=== PATIENT | male | born 2000 | race American Indian/Alaskan Native ===

== ENCOUNTER 2020-09-08 12:49 | Emergency (ER) | payer SELFPAY ==
[2020-09-08 13:34] LABS: Hemoglobin 14.6 gm/dl (11.8-15.2); Mean Corpuscular HGB Conc 35 % (32-34); Mean Corpuscular Volume 88 fl (84-94); Platelet Count 220 K/mm3 (140-440); Red Cell Distribution Width 13.2 % (13.2-15.2)
[2020-09-08 13:47] LABS: Bilirubin,Urine NEG (Negative); Blood,Urine NEG (Negative); Color,Urine Yellow (Yellow); Mucus,Urine 1+ /HPF; Protein,Urine <15 mg/dL mg/dL (Negative); RBC,Urine < 1.0 /HPF (0.0-6.0); Urobilinogen,Urine < 2.0 mg/dL (<2.0)
[2020-09-08 13:53] LABS: Alanine Aminotransferase 25 units/L (7-56); Albumin 4.4 g/dL (3.9-5); BUN/Creatinine Ratio 14; Blood Urea Nitrogen 11 mg/dL (9-20); Hemolysis Index 22
[2020-09-08] MEDS ORDERED: ONDANSETRON 4 MG ODT TAB PO ONE (14:36)
[2020-09-08] MEDS ORDERED: LOPERAMIDE 2 MG CAP PO ONE (14:37)
[2020-09-08 14:39] VITALS: BP 112/64
[2020-09-08 14:47] LABS: Total Cells Counted 100
--- NOTE | 2020-09-08 14:47 | Emergency Department Report ---
ED N/V/D HPI - General Chief complaint: Abdominal Pain Stated complaint: AB/STOMACH PAIN WITH DIARRHEA PUI?: No Source: patient Mode of arrival: Ambulatory Limitations: No Limitations - History of Present Illness Initial comments: 20-year-old -[place] male with a past medical history of HIV and has been off his medication for 3 months presents to the emergency room complaining of diarrhea and nausea for the last 2 days. Patient states he has intermittent abdominal pain but does not have any pain at this time. Patient states that anything he eats or drinks it runs right through to him. Patient reports his try taking Pepto-Bismol but that seemed to make the diarrhea worse. Patient denies any fever or chills no urinary symptoms no chest pain or shortness of breath. MD complaint: nausea, diarrhea Onset/Timin - Related Data Previous Rx's Medication Instructions Recorded Last Taken Type Bictegrav/Emtricit/Tenofov Ala 1 each PO QDAY #30 tablet 09/08/20 Unknown Rx [Biktarvy 50-200-25 mg (Nf)] Ondansetron [Zofran Odt] 4 mg PO Q8HR PRN #8 tab.rapdis 09/08/20 Unknown Rx Allergies Allergy/AdvReac Type Severity Reaction Status Date / Time No Known Allergies Allergy Unverified 09/08/20 12:57 ED Review of Systems ROS: Stated complaint: AB/STOMACH PAIN WITH DIARRHEA Other details as noted in HPI ED Past Medical Hx - Past Medical History Previous Medical History?: Yes Hx HIV: Yes - Surgical History Past Surgical History?: No - Social History Smoking Status: Current Every Day Smoker Substance Use Type: Alcohol, Marijuana - Medications Home Medications: Home Medications Medication Instructions Recorded Confirmed Last Taken Type Bictegrav/Emtricit/Tenofov Ala 1 each PO QDAY #30 tablet 09/08/20 Unknown Rx [Biktarvy 50-200-25 mg (Nf)] Ondansetron [Zofran Odt] 4 mg PO Q8HR PRN #8 tab.rapdis 09/08/20 Unknown Rx ED Physical Exam - General Limitations: No Limitations General appearance: alert, in no apparent distress - Head Head exam: Present: atraumatic, normocephalic - Eye Eye exam: Present: normal appearance - ENT ENT exam: Present: mucous membranes moist - Neck Neck exam: Present: normal inspection - Respiratory Respiratory exam: Present: normal lung sounds bilaterally. Absent: respiratory distress - Cardiovascular Cardiovascular Exam: Present: regular rate, normal rhythm. Absent: systolic murmur, diastolic murmur, rubs, gallop - GI/Abdominal GI/Abdominal exam: Present: soft, normal bowel sounds, hyperactive bowel sounds. Absent: distended, tenderness ED Medical Decision Making - Lab Data Result diagrams: 09/08/20 13:11 09/08/20 13:11 - Medical Decision Making 20-year-old -[place] male with a past medical history of HIV and has been off his medication for 3 months presents to the emergency room complaining of diarrhea and nausea for the last 2 days. Patient states he has intermittent abdominal pain but does not have any pain at this time. Patient states that anything he eats or drinks it runs right through to him. Patient reports his try taking Pepto-Bismol but that seemed to make the diarrhea worse. Patient denies any fever or chills no urinary symptoms no chest pain or shortness of breath. Patient was given Zofran 4 mg ODT. Patient was given Imodium 2 mg p.o. Patient started on p.o. challenge. Patient states still has no abdominal pain. Patient has not vomited since being in the ER. Critical care attestation.: If time is entered above; I have spent that time in minutes in the direct care of this critically ill patient, excluding procedure time. ED Disposition Clinical Impression: Nausea, Diarrhea, HIV (human immunodeficiency virus infection) Disposition: DC-01 TO HOME OR SELFCARE Is pt being admited?: No Does the pt Need Aspirin: No Condition: Stable Additional Instructions: Please start back taking a Biktarvy. You can take the Zofran as needed for the nausea. Is very important for you to follow-up with your infectious disease provider. I also listed 1 that we use near the hospital that she may can get into. You can take Imodium AD which is [id number] antidiarrheal medication. Do not consume more than 8 pills in 24 hours. Please increase your fluid intake advance your diet as tolerated. Try following a brat diet consisting of bananas rice applesauce and toast. Prescriptions: Bictegrav/Emtricit/Tenofov Ala [Biktarvy 50-200-25 mg (Nf)] 1 each PO QDAY #30 tablet Ondansetron [Zofran Odt] 4 mg PO Q8HR PRN #8 tab.rapdis PRN Reason: Nausea And Vomiting Referrals: PRIMARY CARE, [Primary Care Provider] - 3-5 Days BALWINDER العراقي MD [Staff Physician] - 3-5 Days Forms: Work/School Release Form(ED)
[2020-09-08 14:48] LABS: Giant Platelets Rare; Platelet Estimate Consistent w Auto; RBC Morphology Normal
== END 2020-09-08 15:58 | disposition home or self-care (01) ==
LOC: ED 12:49
DX: R19.7 Diarrhea, unspecified (principal); R11.0 Nausea; Z21 Asymptomatic human immunodeficiency virus [HIV] infection status; F17.200 Nicotine dependence, unspecified, uncomplicated; F12.90 Cannabis use, unspecified, uncomplicated; Z72.89 Other problems related to lifestyle; Z79.899 Other long term (current) drug therapy
CPT/HCPCS: 36415; 80053; 81001; 85007; 85025; 99283; Q0162